=== PATIENT | male | born 1945 | race Caucasian/White ===

== ENCOUNTER 2018-05-26 09:54 | Outpatient (RCR) | payer MEDICARE ==
[~2018-05-26 09:54] MED LIST: ADVIL200 MG PO; FLEXERIL 1010 MG/TAB PO; PERCOCET 325 MG1 TA2 PO; PREDNISONE20 MG PO; TUMS500 MG PO; ULTRAM 50MG TAB50 MG PO
== END 2018-06-09 11:12 | disposition home or self-care (01) ==
LOC: WSPT 09:54
DX: M54.41 Lumbago with sciatica, right side (principal); M54.42 Lumbago with sciatica, left side
CPT/HCPCS: G8978-GP; G8979-GP